=== PATIENT | female | born 1935 | race Caucasian/White ===

== ENCOUNTER 2022-09-06 21:47 | Inpatient (IN) | payer OTHER, BC ==
[2022-09-06] MEDS ORDERED: SODIUM CHLORIDE 1,000 ML IV SCH (22:00)
[2022-09-06] MEDS ORDERED: ASPIRIN 81 MG CHEWABLE TABLETS PO ONE (23:25)
[2022-09-06] MEDS ORDERED: ATORVASTATIN CA 80 MG TABLET (FP) PO ONE (23:25)
[2022-09-06 23:46] LABS: BASO % 0.4 % (0-2.0); EOS % 0.5 % (0-4.5); HEMATOCRIT 36.6 % (32.4-45.2); HEMOGLOBIN 12.4 GM/dL (10.7-15.3); LYMPH % 14.8 % (8-40); MCH 31.2 pg (25.7-33.7); MCHC 33.9 g/dl (32.0-36.0); MEAN CELL VOLUME 92.1 fl (80-96); MEAN PLT VOLUME 7.8 fl (7.5-11.1); NEUT % 71.3 % (42.8-82.8); PLATELET COUNT 161 10^3/uL (134-434); RBC 3.97 M/mm3 (3.60-5.2); RDW 16.9 % (11.6-15.6); WHITE BLOOD COUNT 6.1 K/mm3 (4.0-10.0)
[2022-09-06 23:52] LABS: EPI CELLS 1 /uL (0-25.1); HYALINE CASTS 0 /uL (0-3.1); PH,URINE 6.5 (5.0-8.0); URINE APPEARANCE CLEAR; URINE BACTERIA 1 /uL (0-1359); URINE BILIRUBIN NEGATIVE (NEGATIVE); URINE COLOR YELLOW; URINE GLUCOSE (UA) NEGATIVE (NEGATIVE); URINE KETONE 1+ (NEGATIVE); URINE LEUK ESTERASE NEGATIVE (NEGATIVE); URINE NITRITE NEGATIVE (NEGATIVE); URINE PROTEIN 1+ (NEGATIVE); URINE RBC 4 /uL (0-23.9); URINE UROBILINOGEN 0.2 mg/dL (0.2-1.0); URINE WBC 1 /uL (0-25.8)
[2022-09-06 23:56] LABS: INR 1.07 (0.83-1.09); PROTHROMBIN TIME (PATIENT) 12.3 SEC (9.7-13.0)
[2022-09-06 23:58] LABS: ACTIVATED PTT 29.2 SECONDS (25.2-36.5)
[2022-09-07 00:09] LABS: CHLORIDE 76 mmol/L (98-107)
[2022-09-07 00:10] LABS: CALCIUM 9.2 mg/dL (8.5-10.1)
[2022-09-07 00:11] LABS: ALBUMIN 3.9 g/dl (3.4-5.0); CO2 27 mmol/L (21-32)
[2022-09-07 00:13] LABS: GLUCOSE,RANDOM 87 mg/dL (74-106)
[2022-09-07 00:14] LABS: CREATININE 0.5 mg/dL (0.55-1.3); SGOT/AST 29 U/L (15-37); SGPT/ALT 23 U/L (13-61)
[2022-09-07 00:16] LABS: CHOLESTEROL 252 mg/dL (50-200); TOT PROT 6.9 g/dl (6.4-8.2); TRIGLYCERIDES 122 mg/dL (0-150)
[2022-09-07 00:17] LABS: BILIRUBIN,TOTAL 0.9 mg/dL (0.2-1); LDL CHOLESTEROL (ONLY SJRH) 143 mg/dL (5-100)
[2022-09-07 00:18] LABS: ALK PHOS 99 U/L (45-117); HDL CHOLESTEROL 96 mg/dL (40-60)
[2022-09-07 00:20] LABS: ANION GAP 15 MMOL/L (8-16); SODIUM 118 mmol/L (136-145)
[2022-09-07] MEDS ORDERED: SODIUM CHLORIDE 1,000 ML IV SCH ×2 (01:37→22:56)
[2022-09-07 07:44] LABS: BASO % 0.3 % (0-2.0); EOS % 0.2 % (0-4.5); HEMATOCRIT 33.1 % (32.4-45.2); HEMOGLOBIN 11.2 GM/dL (10.7-15.3); LYMPH % 15.9 % (8-40); MCH 31.1 pg (25.7-33.7); MCHC 33.7 g/dl (32.0-36.0); MEAN CELL VOLUME 92.3 fl (80-96); MEAN PLT VOLUME 7.7 fl (7.5-11.1); MONO % 14.8 % (3.8-10.2); NEUT % 68.8 % (42.8-82.8); PLATELET COUNT 142 10^3/uL (134-434); RBC 3.59 M/mm3 (3.60-5.2); RDW 16.8 % (11.6-15.6); WHITE BLOOD COUNT 6.8 K/mm3 (4.0-10.0)
[2022-09-07 07:45] LABS: CALCIUM 8.6 mg/dL (8.5-10.1)
[2022-09-07 07:46] LABS: BLOOD UREA NITROGEN 8.7 mg/dL (7-18); MAGNESIUM 1.2 mg/dL (1.8-2.4)
[2022-09-07 07:49] LABS: CREATININE 0.5 mg/dL (0.55-1.3); PHOSPHOROUS 2.9 mg/dL (2.5-4.9)
[2022-09-07] MEDS ORDERED: ATENOLOL 25 MG TABLET (FP) PO SCH (10:00)
[2022-09-07] MEDS: MUPIROCIN 2% TOPICAL OINTMENT FOR DECOLONIZATION NS SCH (10:05)
[2022-09-07] MEDS: TIMOLOL 0.5% OPHTHALMIC SOL 5 ML BOTTLE OU SCH (10:10)
[2022-09-07] MEDS: HEPARIN NA (PORCINE) 5,000 UNITS/ML 1ML VIAL SQ SCH ×2 (10:50→22:24)
[2022-09-07 13:07] LABS: BLOOD UREA NITROGEN 8.3 mg/dL (7-18); CALCIUM 9.1 mg/dL (8.5-10.1)
[2022-09-07 13:11] LABS: CREATININE 0.5 mg/dL (0.55-1.3)
[2022-09-07] MEDS ORDERED: POTASSIUM CHLORIDE TABS 20 MEQ TABLET.ER (FP) PO ONE (13:15)
[2022-09-07] MEDS ORDERED: MAGNESIUM SULF 50% (8.12 MEQ/2 ML-1 GM VIAL) IVPB ONE (13:30)
[2022-09-07 19:15] LABS: CALCIUM 8.8 mg/dL (8.5-10.1)
[2022-09-07 19:16] LABS: BLOOD UREA NITROGEN 8.4 mg/dL (7-18)
[2022-09-07 19:19] LABS: CREATININE 0.7 mg/dL (0.55-1.3)
[2022-09-07] MEDS ORDERED: ATORVASTATIN CA 40 MG TABLET (FP) PO SCH (22:00)
[2022-09-07] MEDS ORDERED: CHLORHEXIDINE GLUCONATE 4% CLEANSER FOR DECOLONIZATION TP SCH (22:00)
[2022-09-08] MEDS: MUPIROCIN 2% TOPICAL OINTMENT FOR DECOLONIZATION NS SCH (02:45)
[2022-09-08] MEDS: TIMOLOL 0.5% OPHTHALMIC SOL 5 ML BOTTLE OU SCH ×3 (02:46→21:05)
[2022-09-08 09:06] LABS: HEMATOCRIT 35.6 % (32.4-45.2); HEMOGLOBIN 11.8 GM/dL (10.7-15.3); MCH 30.7 pg (25.7-33.7); MEAN PLT VOLUME 7.4 fl (7.5-11.1); PLATELET COUNT 158 10^3/uL (134-434); RBC 3.83 M/mm3 (3.60-5.2); RDW 17.1 % (11.6-15.6); WHITE BLOOD COUNT 12.1 K/mm3 (4.0-10.0)
[2022-09-08 09:32] LABS: CALCIUM 8.9 mg/dL (8.5-10.1); MAGNESIUM 1.7 mg/dL (1.8-2.4)
[2022-09-08 09:33] LABS: BLOOD UREA NITROGEN 6.8 mg/dL (7-18)
[2022-09-08 09:35] LABS: PHOSPHOROUS 2.7 mg/dL (2.5-4.9)
[2022-09-08 09:36] LABS: CREATININE 0.5 mg/dL (0.55-1.3)
[2022-09-08] MEDS: HEPARIN NA (PORCINE) 5,000 UNITS/ML 1ML VIAL SQ SCH ×2 (09:57→21:05)
[2022-09-08] MEDS: ATENOLOL 25 MG TABLET (FP) PO SCH (09:57)
[2022-09-08] MEDS ORDERED: MUPIROCIN 2% TOPICAL OINTMENT FOR DECOLONIZATION NS SCH (10:00)
[2022-09-08] MEDS: ASPIRIN 81 MG CHEWABLE TABLETS PO SCH (15:20)
[2022-09-08] MEDS ORDERED: PANTOPRAZOLE 40 MG TABLET PO ONE (18:13)
[2022-09-08] MEDS: ATORVASTATIN CA 40 MG TABLET (FP) PO SCH (21:05)
[2022-09-08] MEDS ORDERED: CHLORHEXIDINE GLUCONATE 4% CLEANSER FOR DECOLONIZATION TP SCH (22:00)
[2022-09-09] MEDS: HEPARIN NA (PORCINE) 5,000 UNITS/ML 1ML VIAL SQ SCH ×2 (09:33→21:41)
[2022-09-09] MEDS: ATENOLOL 25 MG TABLET (FP) PO SCH (09:33)
[2022-09-09] MEDS: ASPIRIN 81 MG CHEWABLE TABLETS PO SCH (09:36)
[2022-09-09] MEDS: TIMOLOL 0.5% OPHTHALMIC SOL 5 ML BOTTLE OU SCH ×2 (09:38→21:42)
[2022-09-09 11:18] LABS: CALCIUM 8.9 mg/dL (8.5-10.1)
[2022-09-09 11:19] LABS: ALBUMIN 3.6 g/dl (3.4-5.0); BLOOD UREA NITROGEN 8.5 mg/dL (7-18); MAGNESIUM 1.6 mg/dL (1.8-2.4)
[2022-09-09 11:22] LABS: CREATININE 0.7 mg/dL (0.55-1.3)
[2022-09-09 11:23] LABS: BILIRUBIN,TOTAL 0.8 mg/dL (0.2-1); TOT PROT 6.5 g/dl (6.4-8.2)
[2022-09-09] MEDS: PANTOPRAZOLE 20 MG TABLET PO SCH (11:32)
[2022-09-09 12:07] LABS: HEMATOCRIT 33.2 % (32.4-45.2); HEMOGLOBIN 10.9 GM/dL (10.7-15.3); MCH 30.7 pg (25.7-33.7); MCHC 32.8 g/dl (32.0-36.0); MEAN CELL VOLUME 93.8 fl (80-96); MEAN PLT VOLUME 7.5 fl (7.5-11.1); PLATELET COUNT 144 10^3/uL (134-434); RBC 3.54 M/mm3 (3.60-5.2); WHITE BLOOD COUNT 7.9 K/mm3 (4.0-10.0)
[2022-09-09] MEDS ORDERED: MAGNESIUM 1GM/D5W 100ML - 100 ML IVPB IVPB ONE (12:19)
[2022-09-09] MEDS: amLODIPine BESYLATE 5 MG TABLET (FP) PO SCH (17:43)
[2022-09-09] MEDS: ATORVASTATIN CA 40 MG TABLET (FP) PO SCH (21:41)
[2022-09-09] MEDS ORDERED: POLYETHYLENE GLYCOL (HEALTHYLAX) 3350 17 GM PACKET PO SCH (22:00)
[2022-09-10] MEDS: PANTOPRAZOLE 20 MG TABLET PO SCH (09:15)
[2022-09-10] MEDS: ATENOLOL 25 MG TABLET (FP) PO SCH (09:15)
[2022-09-10] MEDS: CLOPIDOGREL BISULFATE 75 MG TABLET (FP) PO SCH (09:15)
[2022-09-10] MEDS: amLODIPine BESYLATE 5 MG TABLET (FP) PO SCH (09:15)
[2022-09-10] MEDS: HEPARIN NA (PORCINE) 5,000 UNITS/ML 1ML VIAL SQ SCH ×2 (09:16→21:25)
[2022-09-10] MEDS: TIMOLOL 0.5% OPHTHALMIC SOL 5 ML BOTTLE OU SCH ×3 (09:17→21:33)
[2022-09-10 13:11] LABS: HEMATOCRIT 36.9 % (32.4-45.2); HEMOGLOBIN 12.1 GM/dL (10.7-15.3); MCHC 32.9 g/dl (32.0-36.0); MEAN PLT VOLUME 7.6 fl (7.5-11.1); PLATELET COUNT 181 10^3/uL (134-434); RBC 3.92 M/mm3 (3.60-5.2); RDW 16.6 % (11.6-15.6); WHITE BLOOD COUNT 8.2 K/mm3 (4.0-10.0)
[2022-09-10 13:34] LABS: CALCIUM 9.1 mg/dL (8.5-10.1)
[2022-09-10 13:35] LABS: ALBUMIN 3.6 g/dl (3.4-5.0); BLOOD UREA NITROGEN 8.8 mg/dL (7-18); MAGNESIUM 1.7 mg/dL (1.8-2.4)
[2022-09-10 13:37] LABS: CREATININE 0.7 mg/dL (0.55-1.3); PHOSPHOROUS 2.4 mg/dL (2.5-4.9)
[2022-09-10 13:39] LABS: BILIRUBIN,TOTAL 0.7 mg/dL (0.2-1); TOT PROT 6.8 g/dl (6.4-8.2)
[2022-09-10] MEDS ORDERED: DOCUSATE SODIUM 100 MG CAPSULE (FP) PO ONE (15:54)
[2022-09-10] MEDS ORDERED: BISACODYL 5 MG TABLET.DR (FP) PO ONE (15:55)
[2022-09-10] MEDS ORDERED: NAPH,MB-DB/K PH,MBDB POWDER PACKET PO ONE (16:52)
[2022-09-10] MEDS ORDERED: MAGNESIUM SULF 50% (8.12 MEQ/2 ML-1 GM VIAL) IVPB ONE (16:52)
[2022-09-10] MEDS: ATORVASTATIN CA 40 MG TABLET (FP) PO SCH (21:25)
[2022-09-10] MEDS: SODIUM CHLORIDE 1 GM TABLET PO SCH (21:25)
[2022-09-11] MEDS: TIMOLOL 0.5% OPHTHALMIC SOL 5 ML BOTTLE OU SCH ×2 (10:20→21:30)
[2022-09-11] MEDS: CLOPIDOGREL BISULFATE 75 MG TABLET (FP) PO SCH (10:20)
[2022-09-11] MEDS: amLODIPine BESYLATE 5 MG TABLET (FP) PO SCH (10:20)
[2022-09-11] MEDS: PANTOPRAZOLE 20 MG TABLET PO SCH (10:20)
[2022-09-11] MEDS: SODIUM CHLORIDE 1 GM TABLET PO SCH ×2 (10:20→21:30)
[2022-09-11] MEDS: ATENOLOL 25 MG TABLET (FP) PO SCH (10:20)
[2022-09-11] MEDS: HEPARIN NA (PORCINE) 5,000 UNITS/ML 1ML VIAL SQ SCH ×2 (10:20→21:30)
[2022-09-11 11:40] LABS: HEMATOCRIT 33.8 % (32.4-45.2); HEMOGLOBIN 11.2 GM/dL (10.7-15.3); MCHC 33.3 g/dl (32.0-36.0); MEAN CELL VOLUME 93.2 fl (80-96); MEAN PLT VOLUME 7.4 fl (7.5-11.1); PLATELET COUNT 175 10^3/uL (134-434); RBC 3.62 M/mm3 (3.60-5.2); RDW 16.8 % (11.6-15.6); WHITE BLOOD COUNT 6.8 K/mm3 (4.0-10.0)
[2022-09-11 12:06] LABS: ALBUMIN 3.2 g/dl (3.4-5.0); BLOOD UREA NITROGEN 9.8 mg/dL (7-18); CALCIUM 9.1 mg/dL (8.5-10.1); MAGNESIUM 1.9 mg/dL (1.8-2.4)
[2022-09-11 12:09] LABS: CREATININE 0.5 mg/dL (0.55-1.3)
[2022-09-11 12:11] LABS: BILIRUBIN,TOTAL 0.7 mg/dL (0.2-1); TOT PROT 6.1 g/dl (6.4-8.2)
[2022-09-11 15:51] VITALS: BMI 20.7
[2022-09-11] MEDS: ATORVASTATIN CA 40 MG TABLET (FP) PO SCH (21:30)
[2022-09-12] MEDS: SODIUM CHLORIDE 1 GM TABLET PO SCH ×2 (10:00→21:32)
[2022-09-12] MEDS: amLODIPine BESYLATE 5 MG TABLET (FP) PO SCH (10:00)
[2022-09-12] MEDS: PANTOPRAZOLE 20 MG TABLET PO SCH (10:00)
[2022-09-12] MEDS: CLOPIDOGREL BISULFATE 75 MG TABLET (FP) PO SCH (10:00)
[2022-09-12] MEDS: ATENOLOL 25 MG TABLET (FP) PO SCH (10:01)
[2022-09-12] MEDS: HEPARIN NA (PORCINE) 5,000 UNITS/ML 1ML VIAL SQ SCH ×2 (10:01→21:32)
[2022-09-12] MEDS: TIMOLOL 0.5% OPHTHALMIC SOL 5 ML BOTTLE OU SCH ×2 (10:02→21:41)
[2022-09-12 11:11] LABS: BASO % 0.7 % (0-2.0); EOS % 0.4 % (0-4.5); HEMATOCRIT 39.5 % (32.4-45.2); HEMOGLOBIN 12.9 GM/dL (10.7-15.3); MCHC 32.7 g/dl (32.0-36.0); MEAN CELL VOLUME 94.7 fl (80-96); MEAN PLT VOLUME 7.9 fl (7.5-11.1); MONO % 10.5 % (3.8-10.2); NEUT % 66.4 % (42.8-82.8); PLATELET COUNT 183 10^3/uL (134-434); RBC 4.17 M/mm3 (3.60-5.2); RDW 17.2 % (11.6-15.6)
[2022-09-12 11:33] LABS: ALBUMIN 3.7 g/dl (3.4-5.0); BLOOD UREA NITROGEN 9.1 mg/dL (7-18); CALCIUM 9.3 mg/dL (8.5-10.1); MAGNESIUM 1.8 mg/dL (1.8-2.4)
[2022-09-12 11:37] LABS: BILIRUBIN,TOTAL 0.6 mg/dL (0.2-1); TOT PROT 6.9 g/dl (6.4-8.2)
[2022-09-12 11:38] LABS: CREATININE 0.7 mg/dL (0.55-1.3); PHOSPHOROUS 3.1 mg/dL (2.5-4.9)
[2022-09-12] MEDS: ATORVASTATIN CA 40 MG TABLET (FP) PO SCH (21:32)
[2022-09-13] MEDS: PANTOPRAZOLE 20 MG TABLET PO SCH (09:42)
[2022-09-13] MEDS: amLODIPine BESYLATE 5 MG TABLET (FP) PO SCH (09:42)
[2022-09-13] MEDS: ATENOLOL 25 MG TABLET (FP) PO SCH (09:42)
[2022-09-13] MEDS: HEPARIN NA (PORCINE) 5,000 UNITS/ML 1ML VIAL SQ SCH ×3 (09:42→21:53)
[2022-09-13] MEDS: SODIUM CHLORIDE 1 GM TABLET PO SCH ×3 (09:42→21:58)
[2022-09-13] MEDS: TIMOLOL 0.5% OPHTHALMIC SOL 5 ML BOTTLE OU SCH ×2 (09:43→21:52)
[2022-09-13] MEDS: CLOPIDOGREL BISULFATE 75 MG TABLET (FP) PO SCH (09:46)
[2022-09-13 10:36] LABS: HEMATOCRIT 37.3 % (32.4-45.2); HEMOGLOBIN 12.3 GM/dL (10.7-15.3); MCH 31.2 pg (25.7-33.7); MCHC 33.1 g/dl (32.0-36.0); MEAN CELL VOLUME 94.3 fl (80-96); MEAN PLT VOLUME 7.6 fl (7.5-11.1); PLATELET COUNT 172 10^3/uL (134-434); RBC 3.95 M/mm3 (3.60-5.2); RDW 17.3 % (11.6-15.6); WHITE BLOOD COUNT 8.1 K/mm3 (4.0-10.0)
[2022-09-13 10:57] LABS: CALCIUM 9.5 mg/dL (8.5-10.1); MAGNESIUM 1.8 mg/dL (1.8-2.4)
[2022-09-13 11:01] LABS: CREATININE 0.7 mg/dL (0.55-1.3); PHOSPHOROUS 3.1 mg/dL (2.5-4.9)
[2022-09-13] MEDS ORDERED: BISACODYL 10 MG SUPP.RECT PR ONE (17:21)
[2022-09-13] MEDS: ATORVASTATIN CA 40 MG TABLET (FP) PO SCH (21:53)
[2022-09-14] MEDS: SODIUM CHLORIDE 1 GM TABLET PO SCH ×2 (06:07→14:36)
[2022-09-14] MEDS: CLOPIDOGREL BISULFATE 75 MG TABLET (FP) PO SCH (09:19)
[2022-09-14] MEDS: PANTOPRAZOLE 20 MG TABLET PO SCH (09:19)
[2022-09-14] MEDS: HEPARIN NA (PORCINE) 5,000 UNITS/ML 1ML VIAL SQ SCH ×3 (09:20→22:06)
[2022-09-14] MEDS: amLODIPine BESYLATE 5 MG TABLET (FP) PO SCH (09:23)
[2022-09-14] MEDS: ATENOLOL 25 MG TABLET (FP) PO SCH (09:24)
[2022-09-14] MEDS: TIMOLOL 0.5% OPHTHALMIC SOL 5 ML BOTTLE OU SCH ×2 (09:25→22:00)
[2022-09-14] MEDS ORDERED: GLYCERIN 1 RECTAL SUPPOSITORY, ADULT RC ONE (10:30)
[2022-09-14] MEDS: POLYETHYLENE GLYCOL (HEALTHYLAX) 3350 17 GM PACKET PO SCH ×2 (12:18→21:59)
[2022-09-14] MEDS: ATORVASTATIN CA 40 MG TABLET (FP) PO SCH (21:59)
[2022-09-15] MEDS: POLYETHYLENE GLYCOL (HEALTHYLAX) 3350 17 GM PACKET PO SCH ×2 (09:32→21:26)
[2022-09-15] MEDS: ATENOLOL 25 MG TABLET (FP) PO SCH (09:32)
[2022-09-15] MEDS: PANTOPRAZOLE 20 MG TABLET PO SCH (09:33)
[2022-09-15] MEDS: HEPARIN NA (PORCINE) 5,000 UNITS/ML 1ML VIAL SQ SCH ×2 (09:40→21:27)
[2022-09-15] MEDS: amLODIPine BESYLATE 5 MG TABLET (FP) PO SCH (09:40)
[2022-09-15] MEDS: CLOPIDOGREL BISULFATE 75 MG TABLET (FP) PO SCH (09:40)
[2022-09-15] MEDS: TIMOLOL 0.5% OPHTHALMIC SOL 5 ML BOTTLE OU SCH ×2 (09:40→23:46)
[2022-09-15] MEDS ORDERED: SODIUM CHLORIDE 1,000 ML IV SCH (11:00)
[2022-09-15] MEDS ORDERED: SODIUM CHLORIDE 250 ML IV STA (11:10)
[2022-09-15 11:20] LABS: CALCIUM 9.4 mg/dL (8.5-10.1)
[2022-09-15 11:24] LABS: CREATININE 0.8 mg/dL (0.55-1.3)
[2022-09-15] MEDS: SODIUM CHLORIDE 1,000 ML IV SCH (15:43)
[2022-09-15] MEDS: SODIUM CHLORIDE 1 GM TABLET PO SCH ×2 (17:46→21:26)
[2022-09-15] MEDS: ATORVASTATIN CA 40 MG TABLET (FP) PO SCH (21:26)
[2022-09-16] MEDS: SODIUM CHLORIDE 1 GM TABLET PO SCH ×3 (06:05→21:44)
[2022-09-16] MEDS: CLOPIDOGREL BISULFATE 75 MG TABLET (FP) PO SCH ×2 (09:28→09:33)
[2022-09-16] MEDS: PANTOPRAZOLE 20 MG TABLET PO SCH (09:29)
[2022-09-16] MEDS: POLYETHYLENE GLYCOL (HEALTHYLAX) 3350 17 GM PACKET PO SCH ×3 (09:29→21:43)
[2022-09-16] MEDS: TIMOLOL 0.5% OPHTHALMIC SOL 5 ML BOTTLE OU SCH ×2 (09:29→21:47)
[2022-09-16] MEDS: HEPARIN NA (PORCINE) 5,000 UNITS/ML 1ML VIAL SQ SCH ×2 (09:33→21:47)
[2022-09-16 11:23] LABS: BLOOD UREA NITROGEN 11.7 mg/dL (7-18); CALCIUM 8.9 mg/dL (8.5-10.1)
[2022-09-16 11:27] LABS: CREATININE 0.7 mg/dL (0.55-1.3)
[2022-09-16] MEDS: SODIUM CHLORIDE 1,000 ML IV SCH (15:30)
[2022-09-16] MEDS: ATORVASTATIN CA 40 MG TABLET (FP) PO SCH (21:43)
[2022-09-17] MEDS: SODIUM CHLORIDE 1,000 ML IV SCH (00:45)
[2022-09-17] MEDS: SODIUM CHLORIDE 1 GM TABLET PO SCH ×3 (05:42→22:32)
[2022-09-17] MEDS: PANTOPRAZOLE 20 MG TABLET PO SCH (09:15)
[2022-09-17] MEDS: TIMOLOL 0.5% OPHTHALMIC SOL 5 ML BOTTLE OU SCH ×2 (09:16→22:32)
[2022-09-17] MEDS: CLOPIDOGREL BISULFATE 75 MG TABLET (FP) PO SCH (09:17)
[2022-09-17] MEDS: POLYETHYLENE GLYCOL (HEALTHYLAX) 3350 17 GM PACKET PO SCH ×2 (09:17→22:32)
[2022-09-17] MEDS: HEPARIN NA (PORCINE) 5,000 UNITS/ML 1ML VIAL SQ SCH ×2 (09:17→22:32)
[2022-09-17] MEDS: ATENOLOL 25 MG TABLET (FP) PO SCH (09:18)
[2022-09-17] MEDS: ATORVASTATIN CA 40 MG TABLET (FP) PO SCH (22:32)
[2022-09-17] MEDS ORDERED: ACETAMINOPHEN 500 MG TABLET (FP) PO ONE (22:48)
[2022-09-18] MEDS: ACETAMINOPHEN 1000 MG/100 ML BAG IVPB ONE ×4 (06:24→15:53)
[2022-09-18] MEDS: SODIUM CHLORIDE 1 GM TABLET PO SCH ×3 (06:24→11:18)
[2022-09-18] MEDS: HEPARIN NA (PORCINE) 5,000 UNITS/ML 1ML VIAL SQ SCH ×4 (06:24→21:28)
[2022-09-18] MEDS ORDERED: ACETAMINOPHEN 500 MG TABLET (FP) PO ONE (06:47)
[2022-09-18 10:22] LABS: MAGNESIUM 1.6 mg/dL (1.8-2.4)
[2022-09-18 10:25] LABS: CREATININE 0.6 mg/dL (0.55-1.3)
[2022-09-18] MEDS: POLYETHYLENE GLYCOL (HEALTHYLAX) 3350 17 GM PACKET PO SCH ×2 (11:15→21:28)
[2022-09-18] MEDS: PANTOPRAZOLE 20 MG TABLET PO SCH (11:18)
[2022-09-18] MEDS: CLOPIDOGREL BISULFATE 75 MG TABLET (FP) PO SCH ×2 (11:18→11:40)
[2022-09-18] MEDS: TIMOLOL 0.5% OPHTHALMIC SOL 5 ML BOTTLE OU SCH ×2 (11:19→21:28)
[2022-09-18] MEDS: ATENOLOL 25 MG TABLET (FP) PO SCH ×2 (11:22→15:08)
[2022-09-18] MEDS ORDERED: MAGNESIUM OXIDE 400 MG TABLET (FP) PO ONE (12:32)
[2022-09-18] MEDS: ACETAMINOPHEN 325 MG TABLET (FP) PO PRN (16:44)
[2022-09-18] MEDS: ATORVASTATIN CA 40 MG TABLET (FP) PO SCH (21:28)
[2022-09-19] MEDS: HEPARIN NA (PORCINE) 5,000 UNITS/ML 1ML VIAL SQ SCH ×3 (06:10→22:25)
[2022-09-19 08:49] LABS: HEMATOCRIT 30.7 % (32.4-45.2); HEMOGLOBIN 10.2 GM/dL (10.7-15.3); MCHC 33.1 g/dl (32.0-36.0); MEAN CELL VOLUME 93.6 fl (80-96); MEAN PLT VOLUME 7.6 fl (7.5-11.1); PLATELET COUNT 102 10^3/uL (134-434); RBC 3.28 M/mm3 (3.60-5.2); RDW 16.6 % (11.6-15.6); WHITE BLOOD COUNT 19.1 K/mm3 (4.0-10.0)
[2022-09-19] MEDS: CLOPIDOGREL BISULFATE 75 MG TABLET (FP) PO SCH ×2 (10:15→14:41)
[2022-09-19] MEDS: ATENOLOL 25 MG TABLET (FP) PO SCH (10:15)
[2022-09-19] MEDS: PANTOPRAZOLE 20 MG TABLET PO SCH (10:21)
[2022-09-19] MEDS: SODIUM CHLORIDE 1 GM TABLET PO SCH ×2 (10:22→22:25)
[2022-09-19] MEDS: POLYETHYLENE GLYCOL (HEALTHYLAX) 3350 17 GM PACKET PO SCH ×2 (10:22→22:25)
[2022-09-19] MEDS: TIMOLOL 0.5% OPHTHALMIC SOL 5 ML BOTTLE OU SCH ×2 (10:27→22:26)
[2022-09-19 12:07] LABS: CALCIUM 8.6 mg/dL (8.5-10.1)
[2022-09-19 12:08] LABS: BLOOD UREA NITROGEN 16.9 mg/dL (7-18)
[2022-09-19 12:11] LABS: CREATININE 0.7 mg/dL (0.55-1.3)
[2022-09-19 12:12] LABS: BILIRUBIN,TOTAL 0.9 mg/dL (0.2-1)
[2022-09-19 12:13] LABS: TOT PROT 5.6 g/dl (6.4-8.2)
[2022-09-19 12:22] LABS: ALBUMIN 2.9 g/dl (3.4-5.0)
[2022-09-19 16:46] LABS: HEMATOCRIT 32.2 % (32.4-45.2); HEMOGLOBIN 10.9 GM/dL (10.7-15.3); MCH 31.3 pg (25.7-33.7); MCHC 33.7 g/dl (32.0-36.0); MEAN CELL VOLUME 92.9 fl (80-96); MEAN PLT VOLUME 7.6 fl (7.5-11.1); PLATELET COUNT 108 10^3/uL (134-434); RBC 3.47 M/mm3 (3.60-5.2); RDW 17.3 % (11.6-15.6); WHITE BLOOD COUNT 16.9 K/mm3 (4.0-10.0)
[2022-09-19] MEDS: ACETAMINOPHEN 325 MG TABLET (FP) PO PRN ×2 (16:48→23:39)
[2022-09-19] MEDS: ATORVASTATIN CA 40 MG TABLET (FP) PO SCH (22:25)
[2022-09-19 23:23] LABS: EPI CELLS 2 /uL (0-25.1); HYALINE CASTS 1 /uL (0-3.1); PH,URINE 5.5 (5.0-8.0); URINE APPEARANCE CLOUDY; URINE BACTERIA >9,000 /uL (0-1359); URINE BILIRUBIN NEGATIVE (NEGATIVE); URINE COLOR YELLOW; URINE GLUCOSE (UA) NEGATIVE (NEGATIVE); URINE KETONE NEGATIVE (NEGATIVE); URINE LEUK ESTERASE 2+ (NEGATIVE); URINE NITRITE NEGATIVE (NEGATIVE); URINE PROTEIN 2+ (NEGATIVE); URINE RBC 37 /uL (0-23.9); URINE UROBILINOGEN 0.2 mg/dL (0.2-1.0); URINE WBC 665 /uL (0-25.8)
[2022-09-20] MEDS: HEPARIN NA (PORCINE) 5,000 UNITS/ML 1ML VIAL SQ SCH ×3 (06:44→21:24)
[2022-09-20 10:08] LABS: BASO % 0.2 % (0-2.0); EOS % 0.2 % (0-4.5); HEMATOCRIT 32.4 % (32.4-45.2); HEMOGLOBIN 10.8 GM/dL (10.7-15.3); MCH 31.5 pg (25.7-33.7); MCHC 33.4 g/dl (32.0-36.0); MEAN CELL VOLUME 94.1 fl (80-96); MEAN PLT VOLUME 8.2 fl (7.5-11.1); MONO % 6.5 % (3.8-10.2); NEUT % 86.1 % (42.8-82.8); PLATELET COUNT 111 10^3/uL (134-434); RBC 3.44 M/mm3 (3.60-5.2); RDW 16.8 % (11.6-15.6); WHITE BLOOD COUNT 12.5 K/mm3 (4.0-10.0)
[2022-09-20 10:29] LABS: ALBUMIN 3.1 g/dl (3.4-5.0); BLOOD UREA NITROGEN 18.5 mg/dL (7-18); CALCIUM 8.8 mg/dL (8.5-10.1); MAGNESIUM 1.7 mg/dL (1.8-2.4)
[2022-09-20 10:32] LABS: CREATININE 0.7 mg/dL (0.55-1.3); PHOSPHOROUS 2.6 mg/dL (2.5-4.9)
[2022-09-20 10:34] LABS: BILIRUBIN,TOTAL 0.9 mg/dL (0.2-1)
[2022-09-20 10:35] LABS: TOT PROT 6.2 g/dl (6.4-8.2)
[2022-09-20] MEDS: POLYETHYLENE GLYCOL (HEALTHYLAX) 3350 17 GM PACKET PO SCH ×2 (10:56→21:24)
[2022-09-20] MEDS: SODIUM CHLORIDE 1 GM TABLET PO SCH ×2 (10:57→21:25)
[2022-09-20] MEDS: TIMOLOL 0.5% OPHTHALMIC SOL 5 ML BOTTLE OU SCH ×2 (10:57→21:25)
[2022-09-20] MEDS: PANTOPRAZOLE 20 MG TABLET PO SCH (10:57)
[2022-09-20] MEDS: ATENOLOL 25 MG TABLET (FP) PO SCH (10:57)
[2022-09-20] MEDS: CLOPIDOGREL BISULFATE 75 MG TABLET (FP) PO SCH (10:57)
[2022-09-20] MEDS: CEFTRIAXONE 1 GM in DEXTROSE 5%-WATER - 50 ML IVPB SCH (11:46)
[2022-09-20] MEDS: ACETAMINOPHEN 325 MG TABLET (FP) PO PRN ×2 (15:46→21:23)
[2022-09-20] MEDS ORDERED: MAGNESIUM SULF 50% (8.12 MEQ/2 ML-1 GM VIAL) IVPB ONE (17:45)
[2022-09-20] MEDS: ATORVASTATIN CA 40 MG TABLET (FP) PO SCH (21:25)
[2022-09-21] MEDS: HEPARIN NA (PORCINE) 5,000 UNITS/ML 1ML VIAL SQ SCH ×2 (06:10→14:03)
[2022-09-21] MEDS: ATENOLOL 25 MG TABLET (FP) PO SCH (09:59)
[2022-09-21] MEDS: POLYETHYLENE GLYCOL (HEALTHYLAX) 3350 17 GM PACKET PO SCH ×3 (09:59→21:09)
[2022-09-21] MEDS: SODIUM CHLORIDE 1 GM TABLET PO SCH ×2 (10:00→21:06)
[2022-09-21] MEDS: CEFTRIAXONE 1 GM in DEXTROSE 5%-WATER - 50 ML IVPB SCH (10:00)
[2022-09-21] MEDS: PANTOPRAZOLE 20 MG TABLET PO SCH (10:00)
[2022-09-21] MEDS: CLOPIDOGREL BISULFATE 75 MG TABLET (FP) PO SCH ×2 (10:00→10:15)
[2022-09-21] MEDS: TIMOLOL 0.5% OPHTHALMIC SOL 5 ML BOTTLE OU SCH ×2 (10:17→21:09)
[2022-09-21 10:39] LABS: HEMATOCRIT 30.6 % (32.4-45.2); HEMOGLOBIN 10.2 GM/dL (10.7-15.3); MCH 31.1 pg (25.7-33.7); MCHC 33.2 g/dl (32.0-36.0); MEAN CELL VOLUME 93.8 fl (80-96); PLATELET COUNT 117 10^3/uL (134-434); RBC 3.27 M/mm3 (3.60-5.2); WHITE BLOOD COUNT 7.7 K/mm3 (4.0-10.0)
[2022-09-21 11:31] LABS: CALCIUM 8.3 mg/dL (8.5-10.1)
[2022-09-21 11:32] LABS: MAGNESIUM 1.8 mg/dL (1.8-2.4)
[2022-09-21 11:35] LABS: CREATININE 0.9 mg/dL (0.55-1.3); PHOSPHOROUS 2.3 mg/dL (2.5-4.9)
[2022-09-21 11:44] LABS: BLOOD UREA NITROGEN 14.9 mg/dL (7-18)
[2022-09-21] MEDS ORDERED: POTASSIUM CHLORIDE TABS 20 MEQ TABLET.ER (FP) PO ONE (12:41)
[2022-09-21] MEDS: NAPH,MB-DB/K PH,MBDB POWDER PACKET PO SCH ×2 (13:56→21:06)
[2022-09-21] MEDS: ACETAMINOPHEN 325 MG TABLET (FP) PO PRN (21:06)
[2022-09-21] MEDS: ATORVASTATIN CA 40 MG TABLET (FP) PO SCH (21:06)
[2022-09-22 09:00] VITALS: RESP 19
[2022-09-22] MEDS: ENOXAPARIN NA (PORCINE) 40 MG/0.4 ML DISP.SYRIN SQ SCH ×2 (09:23→09:36)
[2022-09-22] MEDS: CEFTRIAXONE 1 GM in DEXTROSE 5%-WATER - 50 ML IVPB SCH (09:23)
[2022-09-22] MEDS: POLYETHYLENE GLYCOL (HEALTHYLAX) 3350 17 GM PACKET PO SCH ×2 (09:24→09:37)
[2022-09-22] MEDS: ATENOLOL 25 MG TABLET (FP) PO SCH (09:24)
[2022-09-22] MEDS: PANTOPRAZOLE 20 MG TABLET PO SCH (09:24)
[2022-09-22] MEDS: SODIUM CHLORIDE 1 GM TABLET PO SCH (09:24)
[2022-09-22] MEDS: TIMOLOL 0.5% OPHTHALMIC SOL 5 ML BOTTLE OU SCH (09:24)
[2022-09-22 10:04] LABS: HEMATOCRIT 34.5 % (32.4-45.2); HEMOGLOBIN 11.3 GM/dL (10.7-15.3); MCH 30.9 pg (25.7-33.7); MCHC 32.9 g/dl (32.0-36.0); MEAN CELL VOLUME 93.9 fl (80-96); MEAN PLT VOLUME 8.6 fl (7.5-11.1); PLATELET COUNT 143 10^3/uL (134-434); RBC 3.67 M/mm3 (3.60-5.2); RDW 16.8 % (11.6-15.6); WHITE BLOOD COUNT 8.3 K/mm3 (4.0-10.0)
[2022-09-22 10:42] LABS: BLOOD UREA NITROGEN 14.6 mg/dL (7-18); CALCIUM 8.7 mg/dL (8.5-10.1)
[2022-09-22 10:45] LABS: PHOSPHOROUS 3.1 mg/dL (2.5-4.9)
[2022-09-22 10:46] LABS: CREATININE 0.8 mg/dL (0.55-1.3)
[2022-09-22 15:54] VITALS: BP 112/54; PULSE 92; TEMP 98.6
== END 2022-09-22 17:10 | disposition home or self-care (01) | DRG 643 ==
LOC: JER 21:47 → JERBED 23:26 → JICU 09-07 01:39 → J5S 09-07 20:52
PROVIDERS: ADMIT Internal Medicine Pulmonary Disease; ATTEND Internal Medicine
DX: E22.2 Syndrome of inappropriate secretion of antidiuretic hormone (principal); G93.41 Metabolic encephalopathy; R47.01 Aphasia; N39.0 Urinary tract infection, site not specified; R78.81 Bacteremia; I10 Essential (primary) hypertension; E78.5 Hyperlipidemia, unspecified; I35.0 Nonrheumatic aortic (valve) stenosis; E86.0 Dehydration; J44.9 Chronic obstructive pulmonary disease, unspecified; I65.21 Occlusion and stenosis of right carotid artery; R91.1 Solitary pulmonary nodule; R63.4 Abnormal weight loss; D72.829 Elevated white blood cell count, unspecified; R50.9 Fever, unspecified; Z68.21 Body mass index [BMI] 21.0-21.9, adult; Z85.72 Personal history of non-Hodgkin lymphomas; I95.1 Orthostatic hypotension
CPT/HCPCS: 0241U-QW; 36415; 70450-TC; 70496-TC; 70498-TC; 70551-TC; 71045-TC-FY; 76775-TC; 80048; 80053; 80061; 80307; 81003; 82436; 82550; 82962; 83036; 83605; 83735; 83930; 83935; 84100; 84133; 84300; 84439; 84443; 84484; 85025; 85027; 85610; 85730; 86850; 86900; 86901; 87040; 87086; 87186; 93005; 93010; 94010; 94761; 97116-GP; 97162-GP; 99285-25; J1644; Q9967